=== PATIENT | male | born 1955 | race Caucasian/White ===

== ENCOUNTER → 2017-12-25 | Outpatient (CLI) | payer OTHER | LOC: FIMAGING 13:05 | PROVIDERS: ATTEND Family Medicine | DX: M50.323 Other cervical disc degeneration at C6-C7 level (principal) ==

== ENCOUNTER 2018-02-18 12:24 | Emergency (ER) | payer OTHER ==
--- NOTE | 2018-02-18 14:02 | EDPHY ---
H & P Time Seen by Provider: 02/18/18 13:47 HPI/ROS: CHIEF COMPLAINT: Right flank pain HISTORY OF PRESENT ILLNESS: Patient is a history of atrial fibrillation with ablation 2 years ago, he does feel like it has come back intermittently since then. He is not anticoagulated. He does have a history of degenerative disc disease and chronic neck and back pain. He also has history of hypertension. Or last month he has had right flank pain intermittent which has become much worse over the last 24 hr. Located on the right flank, does not radiate, over the last 2 days worse with movement or position. Feels like an"ice pick"today. No urinary symptoms. REVIEW OF SYSTEMS: Eye: no change in vision ENT: no sore throat Cardiac: no chest pain or syncope Pulmonary: no cough or SOB Abdomen: no vomiting, diarrhea, abdominal pain Musculoskeletal: HPI Skin: no rash Neuro: Chronic peripheral neuropathy with numbness and pain in both legs, variable Constitutional: no fever : no urinary symptoms A comprehensive 10 point review of systems is otherwise negative aside from elements mentioned in the history of present illness. PAST MEDICAL HISTORY: Includes peripheral neuropathy, atrial fibrillation with ablation, hypertension, degenerative disc disease with chronic back pain. Social history: Nonsmoker, no IV drug abuse. General Appearance: Alert and conversant, cooperative. Eyes: No scleral icterus. ENT, Mouth: Normal mucous membranes. Respiratory: Normal respiratory effort, breath sounds equal, lungs are clear to auscultation. Cardiovascular: Regular rate and rhythm. Gastrointestinal: Abdomen is soft and non tender. No pulsatile masses. Neurological: Alert, face symmetric, normal motor in extremities. He does have some intermittent numbness but K as preserved sensation to light touch and states that his sensory exam is within baseline. He is ambulatory. Skin: Warm and dry, no rashes. No zoster. Musculoskeletal: No peripheral edema. No tenderness over the right flank area of pain. Psychiatric: Not agitated. Emergency Department course/MDM: Plan urinalysis, CT abdomen pelvis to evaluate for possibility of renal colic, renal mass, hematoma, renal infarct, or other source of pain. 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 1535: Results and CT reviewed with the patient on the computer system, discharge with lidocaine patches, symptomatic care. Patient does not have symptoms related to his celiac axis incidental finding on CT scan. It was discussed with him. He will follow up with his primary care doctor he develops abdominal pain or early satiety. Smoking Status: Never smoked Constitutional: Initial Vital Signs Temperature (C) 37.1 C 02/18/18 12:43 Heart Rate 72 02/18/18 12:43 Respiratory Rate 17 02/18/18 12:43 Blood Pressure 117/62 02/18/18 12:43 O2 Sat (%) 96 02/18/18 12:43 O2 Delivery Mode Room Air Allergies/Adverse Reactions: Penicillins Allergy (Severe, Verified 02/18/18 12:42) Anaphylaxis Home Medications: Medication Instructions Recorded Magnesium Oxide [Magnesium Oxide 400 mg PO BID 03/13/15 400 mg (*)] Multivitamins [Multivitamin (*)] 1 each PO DAILY 03/13/15 Spring-3 Fatty Acids [Fish Oil 1000 1,000 mg PO DAILY 03/13/15 mg (*)] Spironolactone [Aldactone] 50 mg PO DAILY 03/13/15 Cholecalciferol Vit D3 [Vitamin D3 1 - 2 tab PO DAILY 09/12/15 (*)] Diltiazem HCl [Diltiazem 24Hr Cd] 240 mg PO HS 09/12/15 Doxylamine Succinate [Unisom] 12.5 mg PO HS PRN 09/12/15 Herbals/Supplements -Info Only 1 ea PO DAILY 09/12/15 Gabapentin [Neurontin 300 MG (*)] 300 mg PO HS #0 cap 09/13/15 OXYCODONE HCL 5 mg PO DAILY PRN 02/07/16 Aspirin EC [Aspirin EC 81 mg (*)] 81 mg PO DAILY #0 tab 02/08/16 chlordiazePOXIDE [Librium 25 mg 25 mg PO TID PRN #30 cap 02/08/16 (*)] Lidocaine [Lidoderm] 1 each TP DAILY PRN #7 adh..patch 02/18/18 Medical Decision Making - Diagnostics Imaging Results: Imaging Impressions Abdomen CT 02/18/18 14:13 Impression: . Constipation 2. No evidence for renal, hepatic or bowel infarction. 3. 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 Is there any history of postprandial pain or bloating ? Results discussed with Dr. Dion Nicholas at 3:16 PM. General information for patients regarding this examination can be found At [email or web address]. If you have questions or comments about this report, please contact me at [phone] (hospital) or [phone] (cell). Imaging: Discussed imaging studies w/ call taker Radiologist Differential Diagnosis: Differential considered including but not limited to renal infarct, kidney stone , muscular, thoracic nerve root irritation, shingles, vascular problem - Data Points Laboratory Results: Laboratory Results 02/18/18 13:45 02/18/18 13:45 02/18/18 02/18/18 02/18/18 13:45 13:45 13:45 WBC 8.99 10^3/uL 10^3/uL (3.80-9.50) RBC 5.41 10^6/uL 10^6/uL (4.40-6.38) Hgb 14.6 g/dL g/dL (13.7-17.5) Hct 44.2 % % (40.0-51.0) MCV 81.7 fL fL (81.5-99.8) MCH 27.0 pg L pg (27.9-34.1) MCHC 33.0 g/dL g/dL (32.4-36.7) RDW 14.0 % % (11.5-15.2) Plt Count 201 10^3/uL 10^3/uL (150-400) MPV 10.1 fL fL (8.7-11.7) Neut % (Auto) 63.4 % % (39.3-74.2) Lymph % (Auto) 27.1 % % (15.0-45.0) Williamson % (Auto) 7.5 % % (4.5-13.0) Eos % (Auto) 1.2 % % (0.6-7.6) Baso % (Auto) 0.4 % % (0.3-1.7) Nucleat RBC Rel Count 0.0 % % (0.0-0.2) Absolute Neuts (auto) 5.69 10^3/uL 10^3/uL (1.70-6.50) Absolute Lymphs (auto) 2.44 10^3/uL 10^3/uL (1.00-3.00) Absolute Monos (auto) 0.67 10^3/uL 10^3/uL (0.30-0.80) Absolute Eos (auto) 0.11 10^3/uL 10^3/uL (0.03-0.40) Absolute Basos (auto) 0.04 10^3/uL 10^3/uL (0.02-0.10) Absolute Nucleated RBC 0.00 10^3/uL 10^3/uL (0-0.01) Immature Gran % 0.4 % % (0.0-1.1) Immature Gran # 0.04 10^3/uL 10^3/uL (0.00-0.10) Sodium 140 mEq/L mEq/L (135-145) Potassium 4.3 mEq/L mEq/L (3.3-5.0) Chloride 102 mEq/L mEq/L (97-110) Carbon Dioxide 26 mEq/l mEq/l (22-31) Anion Gap 12 mEq/L mEq/L (8-16) BUN 16 mg/dL mg/dL (7-23) Creatinine 0.6 mg/dL L mg/dL (0.7-1.3) Estimated GFR > 60 Glucose 95 mg/dL mg/dL (70-100) Calcium 9.8 mg/dL mg/dL (8.5-10.4) Total Bilirubin 1.0 mg/dL mg/dL (0.1-1.4) Conjugated Bilirubin 0.3 mg/dL mg/dL (0.0-0.5) Unconjugated Bilirubin 0.7 mg/dL mg/dL (0.0-1.1) AST 25 IU/L IU/L (17-59) ALT 30 IU/L IU/L (21-72) Alkaline Phosphatase 71 IU/L IU/L (38-126) Total Protein 7.2 g/dL g/dL (6.3-8.2) Albumin 4.4 g/dL g/dL (3.5-5.0) Urine Color YELLOW Urine Appearance HAZY Urine pH 5.0 (5.0-7.5) Ur Specific Seymour 1.020 (1.002-1.030) Urine Protein NEGATIVE (NEGATIVE) Urine Ketones NEGATIVE (NEGATIVE) Urine Blood NEGATIVE (NEGATIVE) Urine Nitrate NEGATIVE (NEGATIVE) Urine Bilirubin NEGATIVE (NEGATIVE) Urine Urobilinogen NEGATIVE EU EU (0.2-1.0) Ur Leukocyte Esterase NEGATIVE (NEGATIVE) Urine Glucose NEGATIVE (NEGATIVE) Departure - Departure Disposition: Home, Routine, Self-Care Clinical Impression: Acute right flank pain Condition: Good Instructions: Flank Pain (ED) Referrals: Nathaniel Palmer MD [Primary Care Provider] - As per Instructions Prescriptions: Lidocaine [Lidoderm] 1 each TP DAILY PRN #7 adh..patch PRN Reason: flank pain
[2018-02-18 14:06] LABS: PLATELET COUNT 201 10^3/uL (150-400)
[2018-02-18] MEDS ORDERED: IOPAMIDOL (ISOVUE-300) 100 ML BTL ONE (14:24)
[2018-02-18 15:52] VITALS: BP 108/75
== END 2018-02-18 15:52 | disposition home or self-care (01) ==
DX: R10.9 Unspecified abdominal pain (principal); I48.91 Unspecified atrial fibrillation; I10 Essential (primary) hypertension; G62.9 Polyneuropathy, unspecified
CPT/HCPCS: Q9967

== ENCOUNTER → 2018-07-21 | Outpatient (CLI) | payer OTHER ==
[~2018-07-21] MED LIST: IOHEXOL 350mgI/ML (OMNIPAQUE) 150 ML BTL IV ONE
== END ==
LOC: FIMAGING 10:16
PROVIDERS: ATTEND Internal Medicine Cardiovascular Disease
DX: I51.7 Cardiomegaly (principal); I48.91 Unspecified atrial fibrillation
CPT/HCPCS: 75572; Q9967; 82565-PO

== ENCOUNTER 2018-07-28 11:09 | Observation (INO) | payer OTHER ==
[2018-07-28] MEDS ORDERED: NS 1,000 ML IV ONE (11:11)
[2018-07-28 12:08] LABS: PLATELET COUNT 191 10^3/uL (150-400)
[2018-07-28 12:21] LABS: INR 1.14 (0.83-1.16); PROTIME(PATIENT) 14.8 SEC (12.0-15.0)
[2018-07-28] MEDS ORDERED: HEPARIN/DEXTROSE 25,000 UNIT/500 ML BAG ONE (13:49)
[2018-07-28] MEDS ORDERED: HEPARIN 10,000 UNIT/10 ML MDV (1,000 UNIT/ML) ONE (13:49)
[2018-07-28] MEDS ORDERED: LIDOCAINE 1% 300 MG/30 ML SDV ONE (13:49)
[2018-07-28] MEDS ORDERED: IOPAMIDOL (ISOVUE-300) 100 ML BTL ONE (13:50)
[2018-07-28] MEDS ORDERED: BUPIVACAINE 0.75% 10 ML SDV ONE (13:50)
[2018-07-28] MEDS ORDERED: MIDAZOLAM 2 MG/2 ML VIAL ONE (13:52)
--- NOTE | 2018-07-28 13:53 | PDANEPAE ---
ANE History of Present Illness NICK + CV ANE Past Medical History - Cardiovascular History Hx Hypertension: Yes - Pulmonary History Hx Oxygen in Use at Home: No Hx Sleep Apnea: Yes - Endocrine History Hx Diabetes: No ANE Review of Systems Review of Systems: ANE Patient History - Allergies Allergies/Adverse Reactions: Penicillins Allergy (Severe, Verified 02/18/18 12:42) Anaphylaxis - Home Medications Home Medications: Multivitamins [Multivitamin (*)] 1 each PO DAILY 03/13/15 [Last Taken 02/07/16] Herbals/Supplements -Info Only 1 ea PO DAILY 09/12/15 [Last Taken Unknown] Apixaban [Eliquis] 5 mg PO BID 07/23/18 [Last Taken Unknown] Diltiazem HCl [Cartia Xt] 120 mg PO DAILY 07/23/18 [Last Taken Unknown] Gabapentin [Neurontin 100 MG (*)] 200 mg PO BID@,14 07/23/18 [Last Taken Unknown] Omeprazole 20 mg PO DAILY 07/23/18 [Last Taken Unknown] - Smoking Hx Smoking Status: Never smoked ANE Labs/Vital Signs - Labs Result Diagrams: 07/28/18 11:30 07/28/18 11:30 - Vital Signs Height: 182.88 cm Weight: 99.79 kg ANE Physical Exam - Airway Neck exam: FROM Mallampati Score: Class 2 Mouth exam: normal dental/mouth exam - Pulmonary Pulmonary: clear to auscultation - Cardiovascular Cardiovascular: regular rate and rhythym - ASA Status ASA Status: III ANE Anesthesia Plan Anesthesia Plan: general endotracheal anesthesia
--- NOTE | 2018-07-28 13:54 | PDGENHP ---
History & Physical Chief Complaint: symptomatic afib Relevant Physical Exam: s1s2 irreg. cta. ao3 Cardiorespiratory Assessment: for yecenia and cb ablation
[2018-07-28] MEDS ORDERED: PROPOFOL 200 MG/20 ML VIAL ONE (14:14)
[2018-07-28] MEDS ORDERED: DEXAMETHASONE 4 MG/ML VIAL ONE (14:15)
[2018-07-28] MEDS ORDERED: ROCURONIUM 50 MG/5 ML VIAL ONE (14:15)
[2018-07-28] MEDS ORDERED: fentaNYL 100 MCG/2 ML INJ ONE (14:16)
[2018-07-28] MEDS ORDERED: ONDANSETRON 4 MG/2 ML VIAL ONE (14:16)
[2018-07-28] MEDS ORDERED: PROTAMINE SULFATE 50 MG/5 ML VIAL IVP ONE (16:58)
[2018-07-28] MEDS ORDERED: SUGAMMADEX SODIUM 200 MG/2 ML VIAL IVP ONE (17:13)
[2018-07-28] MEDS ORDERED: HYDROCODONE/APAP 5/325 TAB PO PRN ×2 (17:48→21:48)
[2018-07-28] MEDS ORDERED: ONDANSETRON 4 MG/2 ML VIAL IVP PRN (17:48)
[2018-07-28] MEDS ORDERED: NALOXONE HCL 0.4 MG/ML INJ IVP PRN (17:48)
[2018-07-28] MEDS ORDERED: fentaNYL 100 MCG/2 ML INJ IVP PRN (17:48)
[2018-07-28] MEDS ORDERED: ACETAMINOPHEN 500 MG TAB PO PRN (17:48)
[2018-07-28] MEDS ORDERED: HYDROmorphONE/DILAUDID 1 MG/ML INJ IVP PRN (17:48)
--- NOTE | 2018-07-28 17:48 | POSTANESTH ---
Post Anesthetic Evaluation Cardiovascular Status: Normal, Stable Respiratory Status: Normal, Stable Level of Consciousness/Mental Status: Can Participate in Eval, Alert and Oriented Pain Control: Adequate, Prn Tx Ordered Nausea/Vomiting Control: Adequate, Prn Tx Ordered Complications Possibly Related to Anesthesia: None Noted
--- NOTE | 2018-07-28 17:52 | EPPROC ---
Electrophysiology Procedure Note: ELECTROPHYSIOLOGIC STUDY AND BALLOON-CATHETER MEDIATED CRYOABLATION FOR PAROXSYSMAL ATRIAL FIBRILLATION AND ATRIAL FLUTTER Procedures performed: 43698-46 EP evaluation with RA/RV/LA pace/record, with arrhythmia induction 65238-51 EP evaluation with RA/RV pace record, insert/reposition catheter, with arrhythmia induction 59798 Atrial fibrillation ablation 2nd arrhythmia Intracardiac echocardiogram Transseptal puncture Fluoroscopy INDICATION: Paroxysmal atrial fibrillation PROCEDURE: The patient arrived in the Electrophysiology Laboratory in the fasting state. The right groin, left groin and right infraclavicular area were prepped and draped in the usual sterile fashion. Anesthesiologist administered general anesthesia Dr. Nicol Iraheta, Dr. CINDY Salazar . All catheters were placed percutaneously using the Seldinger technique and advanced into position under fluoroscopic guidance. One #7 Cypriot deflectable octapolar electrode catheter was placed in the His-bundle position via the left femoral vein (2mm spacing, IVC electrode for unipolar recordings). This catheter was placed in the coronary sinus after transseptal puncture and later placed in the SVC-R subclavian vein junction to pace the right phrenic nerve during right pulmonary vein ablation. One #8 Cypriot AcuNaV ultrasound catheter was placed in the left femoral vein and advanced into the right atrium. One #4 Cypriot sheath was inserted into the left femoral artery via percutaneous technique and used for continuous arterial blood pressure monitoring and intermittent ACT determination. Programmed stimulation was performed from the right atrium, left atrium (CS) and right ventricle. There was no evidence of AV accessory pathway. Intracardiac echo evaluation of the left atrium and pulmonary veins was performed. Baseline ACT was drawn and heparin bolus was administered and heparin drip was started prior to transseptal puncture. ACT was checked every 15 minutes and maintained in the range of 350-400 seconds. One 14Fr short sheath was placed in the right femoral vein. One 8Fr SL1 sheath was advanced into the right atrium via the 14Fr short sheath. Transseptal puncture was performed under intracardiac ultrasound, fluoroscopic and hemodynamic guidance placing the sheath into the left atrium. Willow RF needle ( C0 curve) was used. The mean left atrial pressure was _12_ mmHg. Pulmonary vein angiogram was done using SL1 sheath. CT angiography of pulmonary veins was done previously. There were distinct LSPV, LIPV, RSPV and RIPV. The SL1 sheath was exchanged for a Medtronic Flexcath sheath using an Amplatz stiff guide wire. A 28 mm Cryoballoon catheter with a 20 mm Achieve catheter was placed via the sheath into the left atrium. Intracardiac ultrasound and PV angiograms were used to assist in placing the mapping catheter at the antrum of the pulmonary veins. All pulmonary veins were isolated successfully using cryoballoon ablation using freeze/thaw/freeze cycles at 2-3-minute intervals, with good [id number] of isolation. Coumadin ridge/Ligament of Jean region was ablated. Pre and post pulmonary vein recordings were measured on the spiral Achieve catheter to ensure complete pulmonary vein isolation. During the right-sided ablation, phrenic nerve pacing was performed to assess the phrenic nerve strength ( manually and with ICE visualization of liver movement during phrenic capture) and the phrenic nerve was intact throughout the right-sided ablation and at the end of the procedure. An esophageal temperature probe (12 electrode, Circa) was placed by the anesthesiologist at the beginning of the procedure. Esophageal temperature was monitored continuously and cryoablation was interrupted if esophageal temperature was <15 C. Cryoapplications 11 total cryoablation time 1882 s Catheters were withdrawn into RA. Pentaray catheter was used to map previously ablated CT isthmus. There was conduction in CT isthmus near TV. Ablation using 8mm catheter achieved bidirectional conduction block. ICE imaging post ablation was consistent with pre ablation imaging with no changes noted, moreover there was no left atrial/left ventricular thrombus and no pericardial effusion. The catheters were withdrawn. Protamine was given. The sheaths were removed and manual pressure was used for hemostasis post pursestring sutures. The patient was recovered from anesthesia. There were no complications. The patient was arousable and moving all four extremities at the end of the procedure. CONCLUSIONS: 1. Paroxysmal atrial fibrillation. 2. Successful pulmonary vein isolation procedure (left and right pulmonary vein antrum) using cryoballoon ablation. 3. Successful re ablation of CT isthmus for atrial flutter. 4. No apparent complications. Patient Problems: Problems Problem Status Onset Atrial fibrillation and flutter Acute Chest pain of uncertain etiology Acute Atrial fibrillation Acute
[2018-07-28] MEDS ORDERED: GABAPENTIN 300 MG CAP PO SCH (21:00)
[2018-07-28] MEDS ORDERED: oxyCODONE IR 5 MG TAB PO ONE (22:00)
[2018-07-28] MEDS: APIXABAN 5 MG TAB PO SCH (23:49)
[2018-07-29 04:45] LABS: PLATELET COUNT 164 10^3/uL (150-400)
[2018-07-29] MEDS ORDERED: DILTIAZEM CD 120 MG CAP PO SCH (09:00)
[2018-07-29] MEDS ORDERED: GABAPENTIN 100 MG CAP PO SCH (09:00)
[2018-07-29] MEDS ORDERED: PANTOPRAZOLE SODIUM 40 MG TAB PO SCH (09:00)
[2018-07-29 09:26] VITALS: BP 110/75
[2018-07-29] MEDS: APIXABAN 5 MG TAB PO SCH (09:26)
--- NOTE | 2018-07-29 12:02 | GDS ---
[f rep st] DISCHARGE SUMMARY ADMISSION DIAGNOSIS: Atrial fibrillation. DISCHARGE DIAGNOSES: 1. Atrial fibrillation status post successful cryoballoon pulmonary vein isolation. 2. Atrial flutter status post successful re-ablation of the cavotricuspid isthmus. PROCEDURES PERFORMED DURING HOSPITALIZATION: 1. Echocardiogram. 2. Electrocardiogram. 3. Electrophysiology study. 4. Cryoballoon pulmonary vein isolation for treatment of atrial fibrillation. 5. Re-ablation of cavotricuspid isthmus for atrial flutter. HOSPITAL COURSE: Patient presented 07/28/2018 for atrial fibrillation ablation in the setting of increasingly frequent and symptomatic episodes of atrial fibrillation. He underwent successful cryoballoon pulmonary vein isolation for treatment of his atrial fibrillation, in addition to re-ablation of his cavotricuspid isthmus for management of his previously ablated atrial flutter. He had no intra-procedure complications and he has done very well in the postprocedure setting. He has been up ambulating around his room this morning without issue and he is appropriate and stable for discharge home today. PHYSICAL EXAMINATION: GENERAL: He is alert and oriented x4. No apparent distress. VITAL SIGNS: Blood pressure 110/75, heart rate 89, respiratory rate 18, SpO2 of 97% on room air, temp 36.8 degrees Celsius. RESPIRATORY: Lungs are clear to auscultation without adventitious breath sounds. CARDIAC: Normal S1, S2. No S3, S4, or murmurs. Rhythm is regular. ABDOMEN: Normoactive bowel sounds times all 4 quadrants. No masses or tenderness. ABDOMEN: Soft to palpation. SKIN: [place], warm, dry without cyanosis, clubbing, or peripheral edema. EXTREMITIES: Bilateral pursestring sutures removed intact without evidence of hematoma, redness, oozing, swelling, or warmth. Pulses are 2+ bilaterally, no edema. LABORATORY STUDIES: Drawn today. WBC is 9.55, CBC otherwise fairly stable compared to preprocedure. Troponin 5.120. Elevated WBCs and troponin are to be expected in the postprocedure setting. PROCEDURES: 1. Electrophysiology study, atrial fibrillation, and atrial flutter ablation as mentioned above. 2. Preliminary review of his echocardiogram completed this morning demonstrates normal left ventricular systolic function with trace pericardial effusion that is stable compared to preprocedure imaging. 3. Electrocardiogram this morning demonstrates normal sinus rhythm without new ST-T wave or KS interval abnormalities. KS interval this morning measures 210 msec which is consistent with prior ECGs demonstrating normal sinus rhythm and KS intervals consistently greater than 200 msec since at least 2014. DISCHARGE DISPOSITION: Patient will be discharged home in stable condition. He is under activity restrictions as below. DISCHARGE MEDICATIONS: Please see discharge medication reconciliation sheet for full detail. Please note that the patient has been restarted on his blood thinner 6 hours post procedure and he will continue this uninterrupted for the next 3 months. He will also continue his omeprazole for GI prophylaxis for the next 6 weeks. DISCHARGE INSTRUCTIONS: Post atrial fibrillation and atrial flutter ablation instructions reviewed with the patient in detail. We discussed activity restrictions including lifting no more than 10 pounds and avoidance of submerged bathing for 10 days. He will get up and walk around every 45 minutes for 45 days. He will avoid unpressurized air travel or scuba diving for the next 6 months and he will present to our clinic for an echocardiogram prior to engaging in either of these activities. We reviewed bleeding precautions, medication compliance, monitoring for signs and symptoms of infection, monitoring for atrioesophageal fistula, and monitoring persistent arrhythmia. At the time of discharge, patient verbalized understanding regarding all discharge instructions without questions or concerns. He has a followup visit scheduled in the next 4 weeks and he will contact us with any new or concerning symptoms prior to his upcoming visit. Time spent on discharge greater than 30 minutes. /[id number]/MODL MTDD
--- NOTE | 2018-07-29 17:47 | ECHO ---
[email or web address] [address] [address] Main: [phone] Fax: Transthoracic Echocardiogram Name: CHERYL MARTINEZ MR#: [id number] Study Date: 07/29/2018 Study Time: 08:43 AM Date of : 1955 Age: 62 year(s) Height: 182.9 cm (72 in.) Weight: 99.79 kg (220 lb.) BSA: 2.22 m2 Gender: Male Examination: Echo Indication: F/U Post EP study Image Quality: Adequate Contrast: Requested by: Sidney Louis BP: 123 mmHg/76 mmHg Heart Rate: Rhythm: Indication: F/U Post EP study Procedure Staff Asset Protection Manager: Michelle Clifford [facility] Reading Physician: Carito Bliss MD Requesting Provider: Conclusions: Normal size left ventricle. Borderline concentric LV hypertrophy. Normal global systolic LV function. EF is 61 %. No regional wall motion abnormality. Normal size right ventricle. Normal RV function. The left atrium is mildly dilated. The right atrium is mildly to moderately dilated. Mild mitral valve regurgitation is present. Trivial tricuspid valve regurgitation. Pulmonary artery pressure is not obtained due to inadequate TR jet. Trivial pericardial effusion that was noted on his 07/28/2018 NICK.. Measurements: Chambers Valvular Assessment AV/MV Valvular Assessment TV/PV Normal Normal Normal Name Value Range Name Value Range Name Value Range Ao Selena (MM): 3.2 cm (2.2 cm-3.7 AV Vmax: 1.02 m/s (1 m/s-1.7 PV Vmax: 0.86 m/s (0.6 m/s-0.9 cm) m/s) m/s) IVSd (2D): 1.1 cm (0.6 cm-1.1 AV maxP mmHg ( - ) PV PGmax: 3 mmHg ( - ) cm) LVOT Vmax: 0.72 m/s (0.7 m/s-1.1 LVDd (2D): 5.4 cm (4.2 cm-5.9 m/s) cm) PEGGY (Vmax): 3.2 cm2 ( - ) LVDs (2D): 3.7 cm (2.1 cm-4 MV E Vmax: 0.63 m/s ( - ) cm) MV A Vmax: 0.32 m/s ( - ) LVPWd (2D): 1.0 cm (0.6 cm-1 MV E/A: 1.97 ( - ) cm) LVOTd 2.4 cm 2.4 cm mm LVEF (BP): 61 % (>=55 %) Patient: CHERYL MARTINEZ Study Date: 07/29/2018 Page 1 of 2 08:43 AM RVDd(2D): 4.2 cm (1.9 cm-3.8 cmmm) Continued Measurements: Chambers Valvular Assessment AV/MV Name Value Name Value LADs: 4.1 cm MV DecTime: 173 m/s LADs Lon.8 cm MV E/E' Septal: 7.10 LA Area: 26.9 cm2 MV E/E' Lateral: 6.20 LA Volume: 78 ml LA Volume Index: 35.1 ml/m2 TAPSE: 2.5 cm RA Area: 24.5 cm2 Additional Vessels Name Value Ao Ascendin.5 cm Findings: Left Ventricle: Normal size left ventricle. Borderline concentric LV hypertrophy. Normal global systolic LV function. EF is 61 %. No regional wall motion abnormality. Normal diastolic LV function. Right Ventricle: Normal size right ventricle. Normal RV function. Left Atrium: The left atrium is mildly dilated. Right Atrium: The right atrium is mildly to moderately dilated. Mitral Valve: The mitral valve is normal in appearance. Mild mitral valve regurgitation is present. No mitral stenosis is present. Aortic Valve: The aortic valve is tri-leaflet. Mild aortic cusp calcification is noted. There is no aortic valve regurgitation. No aortic valve stenosis is present. Tricuspid Valve: The tricuspid valve is normal in appearance and function. Trivial tricuspid valve regurgitation. Pulmonary artery pressure is not obtained due to inadequate TR jet. Pulmonic Valve: Pulmonary valve not well visualized. Trivial to mild pulmonic valve regurgitation. Aorta: The aorta is normal. Normal size aortic root measuring 3.2 cm. Normal size ascending aorta measuring 3.5 cm. IVC: The IVC is mildly dilated. No foreign body in inferior vena cava. There is greater daphne 50% respiratory excursion. Pericardium: Trivial pericardial effusion that was noted on his 07/28/2018 NICK.. (No Signature Object) Patient: CHERYL MARTINEZ Study Date: 07/29/2018 Page 2 of 2 08:43 AM [id number]
--- NOTE | 2018-07-30 06:38 | ECHO ---
[email or web address] [address] [address] Main: [phone] Fax: Transesophageal Echocardiography Name: CHERYL MARTINEZ MR#: [id number] Study Date: 07/28/2018 Study Time: 02:14 PM Date of : 1955 Age: 62 year(s) Height: ( ) Weight: ( ) BSA: Gender: Male Examination: NICK Indication: EP Study Image Quality: Adequate Contrast: Requested by: Sidney Louis Heart Rate: Rhythm: BP: / Procedure Staff Journeyman Carpenter: Valencia Long RDCS Reading Physician: Sidney Louis MD Requesting Provider: NICK Exam Details Measurements: Chambers Valvular Assessment AV/MV Valvular Assessment TV/PV Normal Normal Normal Name Value Range Name Value Range Name Value Range Visual EF: 55 % Additional Measurements: Valvular Assessment AV/MV Name Value MR PISA radius: 6 mm Findings: Left Ventricle: Normal size left ventricle. Normal global systolic LV function. The ejection fraction is visually estimated to be 55 %. Right Ventricle: Normal size right ventricle. Left Atrium: An agitated saline study was performed and was negative for intracardiac shunting. Spontaneous contrast noted. Left Atrial Appendage: Patient: CHERYL MARTINEZ Study Date: 07/28/2018 Page 1 of 2 02:14 PM Good color flow doppler in the left atrial appendage. Normal PW-Doppler flow pattern. No thrombus in left appendage. Mitral Valve: The mitral valve is normal in appearance. Moderate mitral valve regurgitation is present. No mitral stenosis is present. Aortic Valve: The aortic valve is tri-leaflet. There is no significant aortic valve regurgitation. No aortic valve stenosis is present. Tricuspid Valve: The tricuspid valve is normal in appearance and function. Trivial to mild tricuspid valve regurgitation. Pulmonic Valve: The pulmonic valve is normal in appearance and function. Mild pulmonic valve regurgitation is noted. Pericardium: Trivial pericardial effusion. l1n (No Signature Object) Patient: CHERYL MARTINEZ Study Date: 07/28/2018 Page 2 of 2 02:14 PM [id number]
--- NOTE | 2018-08-04 14:32 | CPEKG ---
Test Reason : Pre-electrophysiology study Blood Pressure : / mmHG Vent. Rate : 106 BPM Atrial Rate : 171 BPM P-R Int : 177 ms QRS Dur : 094 ms QT Int : 332 ms P-R-T Axes : -54 -24 050 degrees QTc Int : 441 ms Atrial fibrillation Confirmed by Oleg Morrison ([id number]) on 08/04/2018 2:31:42 PM Referred By: Sidney Louis Confirmed By:Oleg Morrison
== END 2018-07-29 11:21 | disposition home or self-care (01) ==
LOC: FCATH 11:09 → F2N 17:40 → INTOOBSV 17:40
PROVIDERS: ADMIT Internal Medicine Cardiovascular Disease; ATTEND Internal Medicine Cardiovascular Disease
PROC: 025S3ZZ Destruction of Right Pulmonary Vein, Percutaneous Approach (ICD-10-PCS; principal; 2018-07-28)
PROC: 02K83ZZ Map Conduction Mechanism, Percutaneous Approach (ICD-10-PCS; principal; 2018-07-28)
PROC: 025T3ZZ Destruction of Left Pulmonary Vein, Percutaneous Approach (ICD-10-PCS; principal; 2018-07-28)
PROC: 02563ZZ Destruction of Right Atrium, Percutaneous Approach (ICD-10-PCS; principal; 2018-07-28)
PROC: B246ZZ4 Ultrasonography of Right and Left Heart, Transesophageal (ICD-10-PCS; principal; 2018-07-28)
DX: I48.1 Persistent atrial fibrillation (principal); I48.92 Unspecified atrial flutter; E78.5 Hyperlipidemia, unspecified; I10 Essential (primary) hypertension; G47.33 Obstructive sleep apnea (adult) (pediatric); G62.9 Polyneuropathy, unspecified
CPT/HCPCS: 93306; 93312; 93613; 93655; 93656; 93662; C1731; C1732; C1733; C1759; C1766; C1893; J1100; J1644; J2405; J2704; J2720; J3010; Q9967; J2250